=== PATIENT | female | born 1975 | race Hispanic/Latino ===

== ENCOUNTER → 2023-09-14 | Outpatient (CLI) | payer BC | END | disposition home or self-care (01) | LOC: RAH 10:31 | PROVIDERS: ATTEND Nurse Practitioner Family | DX: R10.9 Unspecified abdominal pain (principal); K76.9 Liver disease, unspecified | CPT/HCPCS: 76700 ==

== ENCOUNTER 2025-06-03 08:05 | Day surgery (SDC) | payer BC ==
[2025-06-01 11:35] LABS: IMMATURE GRANULOCYTE ABSOLUTE 0.01 K/uL (0-1); NUCLEATED RED BLOOD CELLS 0.0 % (0.0-0.19); PLATELET COUNT (AUTO) 262 K/uL (130-400); RED BLOOD CELL COUNT(AUTO) 4.43 MIL/uL (4.00-5.50); RED CELL DISTRIBUTION WIDTH 14.0 % (11.0-15.5); WHITE BLOOD COUNT (AUTO) 6.8 K/uL (4.8-10.8)
[2025-06-01 11:53] VITALS: BP 117/63; PULSE 56; RESP 14; TEMP 98.4
[2025-06-01 11:54] LABS: CREATININE 0.8 mg/dL (0.5-1.0); GLOMERULAR FILTR. RATE CALC 91.0 mL/min (>90); GLUCOSE,RANDOM 80.0 mg/dL (70-105); SODIUM SERUM 140.0 mmol/L (136-145); UREA NITROGEN, BLOOD 8.0 mg/dL (7-18)
[~2025-06-03] VITALS: Ht 167.6 cm; Wt 78.4 kg
[2025-06-03] VITALS (16 sets, daily range): BP systolic 107–124; BP diastolic 54–73; PULSE 55–92; RESP 14–20; TEMP 97–97.3
[~2025-06-03 08:05] MED LIST: [UNRECOGNIZED DRUG - CODE] PO; [UNRECOGNIZED DRUG - CODE] SQ
[2025-06-03] MEDS ORDERED: SCOPOLAMINE HYDROBROMIDE 1 EACH ADH..PATCH TD ONE (10:30)
[2025-06-03] MEDS ORDERED: MIDAZOLAM HCL 1 MG/ML 2ML VIAL ONE (10:39)
[2025-06-03] MEDS ORDERED: LIDOCAINE PF 100MG/5ML (2%) SYRINGE 5ML ONE (10:39)
[2025-06-03] MEDS: LACTATED RINGERS 1000ML 1,000 ML IV ONE (10:54)
--- NOTE | 2025-06-03 11:47 | OP ---
Operative Note: DATE OF PROCEDURE: 06/03/25 SURGEON: ED EUBANKS MD HOSPICE SOCIAL WORKER: [na] ANESTHESIA: [general] ANESTHESIOLOGIST/REFRIGERATOR REPAIRMAN: [general] PREOPERATIVE DIAGNOSIS: [abnormal uterine bleeding, desires iud contraception] POSTOPERATIVE DIAGNOSIS: [same plus polyps and submucous fibroids/adenomyosis] SYNOPSIS: [na] PROCEDURE: [Hysteroscopy Dilation and Curettage, Liletta Iud placement, Lot [id number], Exp 10/2029] ESTIMATED BLOOD LOSS: [minimal] INDICATIONS: [na] DESCRIPTION OF PROCEDURE: [The patient and her were visited in the holding area and questions were addressed to their satisfaction and patient was ready to proceed. She was taken to the operating room and placed under general anesthesia and prepped and draped in the usual sterile fashion in the [facility] [place] stirrups and her bladder was drained. A time out was taken to confirm the patient's identity, the planned procedure, her allergies and the fact that no antibiotics were administered. A right angle was placed into the vagina and the anterior lip of the cervix grasped with an allis clamp and the uterus sounded to 9 cm. The cervix was gradually dilated to about 8-9 mm and the hysteroscope with sterile saline distension media was introduced with findings of a somewhat retroverted uterus, a bulge on the right lower of a possible fibroid or adenomyosis which was boggy and a bulge anteriorly near the fundus of a boggy fibroid vs adenomyosis, polyps were seen in the area of both tubal ostia. The polyp forceps were used and the curette was used to curette until all was gritty and the hysteroscope was reintroduced to confirm. The Liletta iud was placed per supervising architect instructions and the string trimmed to 3 cm. The allis and the right angle were removed, there was scant bleeding at the conclusion of the procedure. The patient tolerated the procedure welll, sponge, lap and needle countswere correct at the end ofthe procedure and the patient was taken to the recovery room in stable condition.] ed eubanks md [facility] [place] EUBANKS MD Jun 03, 2025 11:47
--- NOTE | 2025-06-03 13:09 | NUR ---
Full and complete discharge instructions given to Patient and Family both verbally and in writing. Explained Surgical procedure precautions and follow up. No evidence of bleedingTO SANJUANITA PAD. All questions answered. PIV removed with catheter tip intact. at bedside appearing supportive. W/C to POV with to home
== END 2025-06-03 13:35 | disposition home or self-care (01) ==
LOC: DAH 08:05
PROVIDERS: ATTEND Obstetrics & Gynecology
DX: N93.9 Abnormal uterine and vaginal bleeding, unspecified (principal); Z30.430 Encounter for insertion of intrauterine contraceptive device; D26.1 Other benign neoplasm of corpus uteri; I10 Essential (primary) hypertension; K21.9 Gastro-esophageal reflux disease without esophagitis; Z98.84 Bariatric surgery status; Z83.3 Family history of diabetes mellitus; Z90.49 Acquired absence of other specified parts of digestive tract; Z98.891 History of uterine scar from previous surgery; Z79.899 Other long term (current) drug therapy; Z98.890 Other specified postprocedural states
CPT/HCPCS: 58300; 80048; 84703; 85025; 36415; 58558; 88305; J1100; A4223 ×2; A6260; A4663; J7120 ×2; A4351; A4355; J3010; J2003; J3490; J2250; J2704; J2405; J1885; J2371; A4215; A4213; A4222; A4221; A4216